=== PATIENT | male | born 1970 | race Caucasian/White ===

== ENCOUNTER 2021-06-15 18:53 | Emergency (ER) | payer OTHER, SELFPAY ==
--- NOTE | ~2021-06-15 | XR_ITS ---
EXAMINATION: XR FOOT, RIGHT CLINICAL INFORMATION: Toe bruising and pain. Trauma. COMPARISON: None TECHNIQUE: AP, lateral, and oblique views of the right foot. FINDINGS: Nondisplaced, oblique fracture through the lateral base of the 1st distal phalanx. Additional nondisplaced, oblique fracture through the medial base of the 2nd middle phalanx. First toe soft tissue swelling. No dislocation. No joint space narrowing or marginal osteophytes. No osseous erosion. Plantar and dorsal calcaneal enthesophytes. XR/XR foot RT 2V IMPRESSION: Nondisplaced, oblique fractures through the lateral base of the 1st distal phalanx and medial base of the 2nd middle phalanx. First toe soft tissue swelling.
[2021-06-15 21:17] VITALS: BP 171/96; PULSE 74; RESP 18; TEMP 36.8; O2SAT 97; BMI 33.5
--- NOTE | 2021-06-16 01:08 | ED.LOWEXIN ---
HPI - Extremity Injury (Lower) General Chief Complaint: Extremity Injury, Lower Stated Complaint: Toe injury/Diabetic Time Seen by Provider: 06/15/21 22:55 Source: patient Mode of arrival: ambulatory Limitations: no limitations History of Present Illness HPI Narrative: Patient apparently injured his right greator toe and 2nd toe as table fell on it no open wound patent diabetic bruising of thegreat toe and slight discoloration of toenail Related Data Previous Rx's Medication Instructions Recorded tramadol 50 mg tablet 50 mg PO Q6H PRN #20 tab 06/15/21 Allergies Allergy/AdvReac Type Severity Reaction Status Date / Time No Known Allergies Allergy Unverified 04/10/20 16:20 Review of Systems Review of Systems: Yes all other systems are reviewed and are negative [facility] Past Medical History Medical History Asthma Diabetic acetonemia Social History Social History Advance Directives: No Advance Directives Information Provided: No Physical Exam Vital Signs: Vital Signs: Last Vital Signs Temp 98.2 F 06/15/21 21:17 Pulse 74 06/15/21 21:17 Resp 18 06/15/21 21:17 BP 171/96 H 06/15/21 21:17 Pulse Ox 97 06/15/21 21:17 Body Mass Index 33.5 Const: General: comfortable, no acute distress and well developed Orientation/consciousness: patient oriented x3 Neuro: General: patient oriented x3 and no focal motor deficits Extrem: Ankle/foot/toe images: 1. Subungual hematoma with ecchymosis around and tenderness 2. Diffuse tenderness right 2nd toe with slight swelling no open wound Procedures Procedure Narrative Procedure Narrative: Right great toe subungual hematoma drainage using heat cautery 4 holes were made and 3 cc of blood was drained patient felt much better after drainage of the blood part dressed along with 2nd toe Discharge Plan Discharge Clinical Impression: Fracture of toe, Subungual hematoma of great toe Patient Disposition: Home, Self-Care Instructions: Subungual Hematoma (ED), Toe Fracture (ED) Additional Instructions: Local care as advised Escobar tape as advised Tramadol for pain Prescriptions: New tramadol 50 mg tablet 50 mg PO Q6H PRN (Reason: pain) Qty: 20 RF: 0 Interventions: ED Discharge Assessment Last Done: 06/15/21 23:30 Discharge Date/Time: 06/15/21 23:31
== END 2021-06-15 23:31 | disposition home or self-care (01) ==
PROVIDERS: Emergency Provider Internal Medicine
DX: S92.424A Nondisplaced fracture of distal phalanx of right great toe, initial encounter for closed fracture (principal); S92.524A Nondisplaced fracture of middle phalanx of right lesser toe(s), initial encounter for closed fracture; S90.211A Contusion of right great toe with damage to nail, initial encounter; W20.8XXA Other cause of strike by thrown, projected or falling object, initial encounter; Y93.9 Activity, unspecified; Y92.9 Unspecified place or not applicable; Y99.9 Unspecified external cause status
CPT/HCPCS: 11740; 73620; 99283